=== PATIENT | male | born 1940 ===

== ENCOUNTER 2024-07-11 11:45 | Inpatient (IN) | payer OTHER ==
[~2024-07-11] VITALS: Ht 294.6 cm; Wt 75.7 kg
[2024-07-11] MEDS ORDERED: PRILOSEC OTC20 MG (12:42)
[2024-07-11] MEDS ORDERED: AVAPRO300 MG PO (12:42)
[2024-07-11] MEDS ORDERED: TERAZOSIN HCL1 M1 PO (12:43)
[2024-07-11] MEDS ORDERED: NORVASC5 MG PO (12:43)
[2024-07-11 13:55] VITALS: BP 151/88
[2024-07-18] MEDS ORDERED: METRONIDAZOLE/SODIUM CHLORIDE 500 MG/100 ML PIGGYBACK IV ONE ×2 (09:38→12:30)
[2024-07-18 11:51] LABS: RH POSITIVE
[2024-07-18] MEDS ORDERED: BUPIVACAINE HCL/MPF 0.5% 30ML VIAL ONE (11:51)
[2024-07-18] MEDS ORDERED: LIDOCAINE HCL 1%/EPINEPHRINE 20ML VIAL IJ ONE ×2 (11:51→12:30)
[2024-07-18] MEDS ORDERED: CEFTRIAXONE SODIUM 2,000 MG VIAL IV ONE (12:30)
[2024-07-18] MEDS ORDERED: BUPIVACAINE HCL 30 ML VIAL IJ ONE (12:30)
[2024-07-18] MEDS ORDERED: ONDANSETRON HCL 2 MG/ML VIAL IV PRN (14:45)
[2024-07-18] MEDS ORDERED: RINGERS SOLUTION,LACTATED 1,000 ML IV SCH (14:45)
[2024-07-18] MEDS ORDERED: MORPHINE SULFATE 4 MG/ML VIAL IV PRN (14:45)
[2024-07-18] MEDS ORDERED: OxyCODONE HCL 5 MG TABLET (ROXICODONE) PO PRN (15:00)
[2024-07-18] MEDS ORDERED: ENALAPRILAT DIHYDRATE 1.25 MG/ML VIAL IV PRN (15:15)
[2024-07-18] MEDS ORDERED: MORPHINE SULFATE 4 MG/ML VIAL IV ONE ×2 (15:45→18:15)
[2024-07-18] MEDS ORDERED: SIMETHICONE 125 MG CAPSULE PO SCH (17:00)
[2024-07-18] MEDS ORDERED: POLYETHYLENE GLYCOL 3350 17 GM BLIST.PACK PO SCH (17:00)
[2024-07-18] MEDS ORDERED: ACETAMINOPHEN 500 MG GEL..CAP PO SCH (18:00)
[2024-07-18 20:22] LABS: HEMATOCRIT 44.6 % (39.0-48.0); HEMOGLOBIN 15.2 g/dL (13-16.00); MEAN CELL VOLUME 90.4 fL (80.0-100.00); MEAN CORPUSCULAR HEMOGLOBIN 30.7 pg (27.00-32.0); MEAN CORPUSCULAR HGB CONC 33.9 g/dl (32.0-36.0); PLATELET COUNT 165 K/uL (150-450); RED BLOOD COUNT 4.94 M/uL (4.00-6.00); RED CELL DISTRIBUTION WIDTH 13.8 % (11.5-14.5)
[2024-07-18 20:29] VITALS: BP 156/93; O2SAT 97
[2024-07-18 20:30] LABS: ALBUMIN 3.8 gm/dL (3.4-5.0); CALCIUM 9.1 mg/dL (8.5-10.1); CREATININE SERUM 0.74 mg/dL (0.70-1.30); GFR 101.26; PHOSPHOROUS 3.6 mg/dL (2.5-4.9); POTASSIUM 3.9 mEq/L (3.5-5.1)
[2024-07-18] MEDS ORDERED: FAMOTIDINE/PF 20 MG/2 ML VIAL IV SCH (21:00)
[2024-07-18] MEDS ORDERED: TERAZOSIN HCL 1 MG CAPSULE PO SCH (21:00)
[2024-07-19] MEDS ORDERED: LACTOBACILLUS ACIDOPHILUS 1 CAP CAP PO SCH (09:00)
[2024-07-19] MEDS ORDERED: AMLODIPINE BESYLATE 5 MG TABLET PO SCH (09:00)
[2024-07-19] MEDS ORDERED: IRBESARTAN 300 MG TABLET PO SCH (09:00)
[2024-07-19] MEDS ORDERED: MAGNESIUM CHLORIDE 70 MG TABLET.DR PO SCH (09:00)
[2024-07-19] MEDS ORDERED: ENOXAPARIN SODIUM 40 MG/0.4 ML SYRINGE SUBCUTANEO SCH (17:00)
[2024-07-20 01:05] VITALS: BP 145/83; O2SAT 96
[2024-07-20 08:00] VITALS: BP 134/83; O2SAT 96
[2024-07-20 08:32] LABS: HEMATOCRIT 49.3 % (39.0-48.0); HEMOGLOBIN 16.7 g/dL (13-16.00); MEAN CELL VOLUME 91.3 fL (80.0-100.00); MEAN CORPUSCULAR HEMOGLOBIN 30.8 pg (27.00-32.0); MEAN CORPUSCULAR HGB CONC 33.8 g/dl (32.0-36.0); PLATELET COUNT 171 K/uL (150-450); RED CELL DISTRIBUTION WIDTH 13.7 % (11.5-14.5)
[2024-07-20 09:15] LABS: ALBUMIN 4.1 gm/dL (3.4-5.0); CALCIUM 9.2 mg/dL (8.5-10.1); CREATININE SERUM 0.6 mg/dL (0.70-1.30); GFR 128.98; MAGNESIUM 2.5 mg/dL (1.8-2.4); PHOSPHOROUS 2.1 mg/dL (2.5-4.9); POTASSIUM 3.87 mEq/L (3.5-5.1)
[2024-07-20] MEDS ORDERED: POTASSIUM PHOS,M-BASIC-D-BASIC 15 MM in 0.9 % SODIUM CHLORIDE 250 ML IV NR (09:30)
[2024-07-20 16:00] VITALS: BP 136/78; O2SAT 96
[2024-07-20] MEDS ORDERED: DOCUSATE SODIUM 100MG CAP PO STA (16:43)
[2024-07-21 01:24] VITALS: BP 132/75; O2SAT 96
[2024-07-21 08:00] VITALS: BP 137/75; O2SAT 97
[2024-07-21] MEDS ORDERED: LACTULOSE 20 G/30 ML BLIST.PACK PO SCH (09:00)
[2024-07-21] MEDS ORDERED: DOCUSATE SODIUM 100MG CAP PO SCH ×2 (09:00)
[2024-07-21] MEDS ORDERED: MINERAL OIL 30 ML BLIST.PACK PO SCH (09:00)
[2024-07-21] MEDS ORDERED: MAGNESIUM CHLORIDE 70 MG TABLET.DR PO SCH (13:00)
[2024-07-21 16:40] VITALS: BP 132/80; O2SAT 98
[2024-07-22] VITALS: BP 134/68; O2SAT 97
[2024-07-22] MEDS ORDERED: VANCOMYCIN HCL 1,000 MG VIAL IV SCH (05:00)
[2024-07-22 08:00] VITALS: BP 152/83; O2SAT 96
[2024-07-22] MEDS ORDERED: VANCOMYCIN HCL 1,000 MG VIAL IV STA (16:42)
[2024-07-22] MEDS ORDERED: DIATRIZOATE MEGLUMINE, SODIUM 30 ML BOTTLE PO STA (16:43)
[2024-07-22 17:30] VITALS: BP 159/98; O2SAT 96
[2024-07-22] MEDS ORDERED: VANCOMYCIN HCL 1,000 MG VIAL ONE (17:32)
[2024-07-22 18:19] VITALS: BP 151/87
[2024-07-23] MEDS ORDERED: VANCOMYCIN HCL 1,000 MG VIAL ONE ×2 (00:12→15:13)
[2024-07-23 00:51] VITALS: BP 148/71; O2SAT 96
[2024-07-23 08:00] VITALS: BP 132/82; O2SAT 98
== END 2024-07-23 17:56 | disposition home or self-care (01) | DRG 331 ==
LOC: O/R 07-18 07:14 → SURH 07-18 07:14
PROVIDERS: ADMIT Colon & Rectal Surgery; ATTEND Colon & Rectal Surgery
PROC: 07BB4ZZ Excision of Mesenteric Lymphatic, Percutaneous Endoscopic Approach (ICD-10-PCS; 2024-07-18)
PROC: 0WQF4ZZ Repair Abdominal Wall, Percutaneous Endoscopic Approach (ICD-10-PCS; 2024-07-18)
PROC: 0DTG4ZZ Resection of Left Large Intestine, Percutaneous Endoscopic Approach (ICD-10-PCS; principal; 2024-07-18 11:45)
DX: C18.5 Malignant neoplasm of splenic flexure (principal); R59.0 Localized enlarged lymph nodes; K43.9 Ventral hernia without obstruction or gangrene; I10 Essential (primary) hypertension